=== PATIENT | male | born 1980 | race Caucasian/White ===

== ENCOUNTER 2020-07-26 01:36 | Emergency (ER) | payer BC, SELFPAY ==
--- NOTE | ~2020-07-26 | XR_ITS ---
EXAMINATION: XR LUMBAR SPINE XR SACRUM/COCCYX CLINICAL INFORMATION: Fall with pain COMPARISON: None TECHNIQUE: 3 views of the lumbar spine. 3 views of the sacrum/coccyx. FINDINGS: Lumbar spine: There is a compression deformity of the T12 vertebral body. Anterior vertebral body height loss of approximately 40%. This may be acute. Remaining vertebral body heights are maintained. The sacrum appears intact. The sacroiliac joints are symmetric. The coccyx is aligned. The bowel gas pattern is unremarkable. XR/XR sacrum coccyx min 2V IMPRESSION: Anterior wedge compression deformity of the T12 vertebral body. This could be acute. No fracture or malalignment of the sacrum/coccyx or lumbar spine.
--- NOTE | ~2020-07-26 | CT_ITS ---
EXAMINATION: CT HEAD WITHOUT CONTRAST CLINICAL INFORMATION: Fall. Loss of consciousness. COMPARISON: None. TECHNIQUE: Contiguous axial imaging was performed from the skull base to vertex without intravenous contrast. This CT examination was performed using dose optimization techniques as appropriate, variously including the following: * Automated exposure control * Adjustment of mA and/or kV according to patient size (this includes techniques or standardized protocols for targeted exams where dose is matched to indication/reason for exam; i.e. extremities or head) Use of iterative reconstruction technique DLP: 639 mGy-cm. FINDINGS: There is no evidence of acute intracranial hemorrhage or territorial infarction. No abnormal mass effect or midline shift is seen. Brown to white matter differentiation is well preserved. No extra-axial fluid collections are identified. No hydrocephalus. No significant volume loss. There is no abnormal attenuation within the brain parenchyma. The osseous structures and soft tissues are normal. Opacification of the left sphenoid. The mastoid air cells and visualized portions of the paranasal sinuses are otherwise well aerated. CT/CT head/brain wo con IMPRESSION: No acute intracranial pathology.
--- NOTE | ~2020-07-26 | XR_ITS ---
EXAMINATION: XR LUMBAR SPINE XR SACRUM/COCCYX CLINICAL INFORMATION: Fall with pain COMPARISON: None TECHNIQUE: 3 views of the lumbar spine. 3 views of the sacrum/coccyx. FINDINGS: Lumbar spine: There is a compression deformity of the T12 vertebral body. Anterior vertebral body height loss of approximately 40%. This may be acute. Remaining vertebral body heights are maintained. The sacrum appears intact. The sacroiliac joints are symmetric. The coccyx is aligned. The bowel gas pattern is unremarkable. XR/XR lumbar spine 2-3V IMPRESSION: Anterior wedge compression deformity of the T12 vertebral body. This could be acute. No fracture or malalignment of the sacrum/coccyx or lumbar spine.
[2020-07-26 02:23] VITALS: BP 130/94; PULSE 82; RESP 18; TEMP 36.7; O2SAT 95; BMI 36.1
--- NOTE | 2020-07-26 03:12 | ED_ITS ---
HPI - Fall General Chief Complaint: Fall Stated Complaint: Fall Time Seen by Provider: 07/26/20 03:12 Source: patient Mode of arrival: ambulatory History of Present Illness HPI Narrative: This is a 40-year-old male who presents after a slip and fall accident while leaving as house to go to work and states that he fell hard onto his buttocks and currently has pain across that area as well as approximately L1/L2 back pain. He denies any numbness/tingling/weakness in to his bilateral lower extremities and denies head strike or loss of consciousness, but collateral information provided by his she states that patient passed out. Related Data Previous Rx's Medication Instructions Recorded cyclobenzaprine 10 mg PO BEDTIME PRN #4 tab 07/26/20 ketorolac 10 mg PO Q6H PRN 5 Days #20 tab 07/26/20 Allergies Allergy/AdvReac Type Severity Reaction Status Date / Time No Known Allergies Allergy Unverified 02/25/20 19:23 [No Known Allergies*] Review of Systems Review of Systems: Pertinent positives and negatives as stated in HPI 10 point review systems is otherwise negative. PMFSH Past Medical History Source: nursing notes reviewed Medical History Hand fracture Heartburn symptom Hiatal hernia Social History Social History Advance Directives: No Physical Exam Vital Signs: Vital Signs: Last Vital Signs Temp 98.1 F 07/26/20 02:23 Pulse 82 07/26/20 02:23 Resp 18 07/26/20 02:23 BP 130/94 H 07/26/20 02:23 Pulse Ox 95 07/26/20 02:23 Body Mass Index 36.1 VITAL SIGNS: Reviewed. GENERAL: Well developed, well nourished, in no acute distress. HEAD: Normocephalic/atraumatic, EYES: PERRLA, EOMI OROPHARYNX: no oral lesions noted, posterior pharynx clear NECK: Supple, no adenopathy LUNGS: Normal breath sounds. SpO2<95> CARDIOVASCULAR: Regular rate and rhythm without noted murmurs ABDOMEN: Soft, non-tender, non-distended with bowel sounds. BACK: L1/L2 tenderness as well as lower paraspinal tenderness bilaterally on palpation MUSCULOSKELETAL: No tenderness, deformities, or effusions noted on gross inspection. EXTREMITIES: No cyanosis, clubbing or edema. SKIN: Inspection of the skin reveals no rashes NEUROLOGIC: Alert and oriented x 4. Strength and sensation to light touch were grossly intact x 4. Course Course Course Narrative: This is a 40-year-old male with history and clinical presentation consistent with mechanical fall and reported head strike with LOC. Patient provided combination analgesics On review of all investigations XR findings were significant for T12 wedge fracture approximately 40% height loss, CT of the head and sacral coccyx was without acute findings. On re-evaluation patient has had good pain control. Discussed with radiologist the necessity of obtaining CT of thoracic spine given the T12 wedge fracture identified and recommended that specialist identify further imaging if necessary. I discussed the case briefly with Orthopedic surgery, Dr. Trammell, who states that their office does not cover spine. Patient will be provided with Discharge Plan Discharge Clinical Impression: Fall Qualifiers: Encounter type: initial encounter Qualified Code(s): W19.XXXA - Unspecified fall, initial encounter Wedge compression fracture of thoracic vertebra Qualifiers: Encounter type: initial encounter Thoracic vertebra fracture level: T12 Fracture type: closed Qualified Code(s): S22.080A - Wedge compression fracture of T11-T12 vertebra, initial encounter for closed fracture Patient Disposition: Home, Self-Care Instructions: Vertebral Compression Fracture (ED), Fall Prevention (ED) Additional Instructions: TODAY PLEASE CONTACT: [facility] [address] [place] [address] [id number] Tylenol 1000 mg, orally, every 6 hours as needed for pain control. Do not exceed 4000 mg within 24 hours. Lidocaine patch, these are available [id number] at every [facility], apply to the area of maximal tenderness as directed on the outside packaging. Do not hesitate to return to the emergency department should you experience any acute worsening of her symptoms. Prescriptions: New ketorolac 10 mg tablet 10 mg PO Q6H PRN (Reason: pain) 5 Days Qty: 20 RF: 0 cyclobenzaprine 10 mg tablet 10 mg PO BEDTIME PRN (Reason: muscle spasm) Qty: 4 RF: 0
[2020-07-26] MEDS: Cyclobenzaprine HCl 10 MG TABLET PO (05:16)
[2020-07-26] MEDS: Ketorolac Tromethamine 15 MG/ML VIAL IM (05:17)
[2020-07-26] MEDS: Acetaminophen 325 MG TABLET 975 MG PO (05:18)
[2020-07-26] MEDS: Lidocaine 4 % Patch ADH..PATCH 1 PATCH TRANSDERMA (05:18)
== END 2020-07-26 07:22 | disposition home or self-care (01) ==
PROVIDERS: Emergency Provider Student in an Organized Health Care Education/Training Program
DX: S22.080A Wedge compression fracture of T11-T12 vertebra, initial encounter for closed fracture (principal); W01.0XXA Fall on same level from slipping, tripping and stumbling without subsequent striking against object, initial encounter; Y93.89 Activity, other specified; Y92.018 Other place in single-family (private) house as the place of occurrence of the external cause; Y99.9 Unspecified external cause status
CPT/HCPCS: 70450; 72100; 72220; 96372; 99283; 99284; J1885

== ENCOUNTER 2021-05-15 11:29 | Outpatient (REF) | payer BC, SELFPAY ==
[2021-05-15 12:46] LABS: COVID-19 Test Positive (Negative)
== END 2021-05-15 11:30 | disposition home or self-care (01) ==
LOC: HO.LAB 11:29
PROVIDERS: Visit Provider Internal Medicine
DX: Z20.822 Contact with and (suspected) exposure to COVID-19 (principal)
CPT/HCPCS: 36415; 87635; C9803

== ENCOUNTER 2021-05-29 10:48 | Outpatient (REF) | payer BC, SELFPAY ==
[2021-05-29 12:04] LABS: COVID-19 Test Positive (Negative); IDNOW Serial# 16C4AD1C
== END 2021-05-29 10:49 | disposition home or self-care (01) ==
LOC: HO.LAB 10:48
PROVIDERS: Visit Provider Internal Medicine
DX: Z20.822 Contact with and (suspected) exposure to COVID-19 (principal)
CPT/HCPCS: 36415; 87635; C9803

== ENCOUNTER 2025-03-25 17:01 | Emergency (ER) | payer BC, SELFPAY ==
[2025-03-25 17:45] VITALS: BP 169/106; PULSE 117; RESP 20; TEMP 36.7; O2SAT 95; BMI 33.3
--- NOTE | 2025-03-25 17:49 | ED.GENADULT ---
HPI - General Adult General Chief complaint: Eye Problems Stated complaint: left eye red/swollen Time Seen by Provider: 03/25/25 18:35 History of Present Illness ED Provider: Bob Weiss MD HPI narrative: 44-year-old male with a recurrence of facial rash. No history. Reports only using nicotine patches. He comes in with a about a week of worsening left sided forehead rash somewhat painful spreading to his eyelid feels like he has trouble opening in the eye but not burning pain of the eyeball itself. Little bit of clear drainage from the eye. No prior similar. No ophthalmologic history. No drugs or alcohol or known immunocompromise his partners at the bedside has personally had facial shingles in the past. Related Data Previous Rx's ?Medication ?Instructions ?Recorded cyclobenzaprine 10 mg tablet 10 mg PO BEDTIME PRN muscle spasm 07/26/20 #4 tabs ketorolac 10 mg tablet 10 mg PO Q6H PRN pain 5 days #20 07/26/20 tabs valacyclovir 1 gram tablet 1,000 mg PO TID 7 days #21 tabs 03/25/25 Allergies Allergy/AdvReac Type Severity Reaction Status Date / Time No Known Allergies (No Known Allergy Verified 03/25/25 17:49 Allergies*) [facility] Past Medical History Medical History Hand fracture Heartburn symptom Hiatal hernia Social History Social History Smoked in Last 30 Days: No Use of substances other than those prescribed or required for medical reasons: No Advance Directives: No Advance Directives Information Provided: No Do you have a plan to hurt others: No Plan Physical Exam ED Exam Exam: GENERAL: Well appearing. No apparent distress. Alert. HEAD/NECK: No visual trauma. EYES: Left eye, scleral without injection. Fluorescein staining without any clear uptake or Gerald sign. No clear dendritic lesions pupil reactive no hyphema or hypopyon visualized ENMT: Left medial superior nose, eyelid and left forehead vesicular type rash RESPIRATORY: Respiratory effort normal. CARDIOVASCULAR: Additional details (Grossly well perfused). SKIN: No jaundice. NEUROLOGICAL: Alert. Moving all extremities x4. Additional details (No gross motor deficits. Normal tone. ). PSYCHIATRIC: Alert. Appearance appropriate for situation. Vital Signs: Vital Signs - 24 hr 03/25/25 17:45 03/25/25 20:21 Temperature 98.1 F 99.7 F Pulse Rate 117 H 113 H Respiratory Rate 20 20 Blood Pressure 169/106 H 151/109 H Pulse Oximetry 95 95 Oxygen Delivery Method Room Air Room Air BMI result Body Mass Index 33.3 Course Course Course Narrative: RME: 44-year-old male presents to ED for left eye irritation and left facial rash gone back to left side of face scalp. On exam looks like shingles fascicular rash on left side of scalp and face with eye swelling. Patient to be brought back to the ED for Medications Administered Discontinued Medications Generic Name Dose Route Start Last Admin Trade Name Freq PRN Reason Stop Dose Admin Fluorescein Sodium 1 strip 03/25/25 18:41 03/25/25 18:52 Fluorescein Sodium Strip EYE-LEFT 03/25/25 18:42 1 strip ONCE ONE Administration Gabapentin 200 mg 03/25/25 18:39 03/25/25 18:44 Gabapentin 100 Mg Capsule PO 03/25/25 18:40 200 mg ONCE ONE Administration Ibuprofen 600 mg 03/25/25 18:39 03/25/25 18:44 Ibuprofen 600 Mg Tablet PO 03/25/25 18:40 600 mg ONCE ONE Administration Tetracaine HCl 1 drop 03/25/25 18:41 03/25/25 18:52 Tetracaine Hcl 0.5% Oph [place] 5 Ml Drops EYE-LEFT 03/25/25 18:42 1 drop ONCE ONE Administration Valacyclovir HCl 1,000 mg 03/25/25 18:36 03/25/25 18:45 Valacyclovir Hcl 1,000 Mg Tablet PO 03/25/25 18:37 1,000 mg ONCE ONE Administration Medical Decision Making Medical Decision Making [facility] Narrative: Medical Decision Making: Left-sided facial rash suggestive of zoster facial V1 distribution. Distribution suggestive of V1 facial zoster. No immunocompromise. No dendritic lesions or significant injection of the eye or fluorescein uptake. Oral valacyclovir and gabapentin started in the ED and continued for 7 day course with a prescription. Advised patient and partner at bedside the importance of close follow up if there are significant vision changes with Ophthalmology number provided they understood this. Preliminary Favored Differential Diagnosis: Zoster, cellulitis, viral rash, allergic rash among additional considered etiologies Testing Interpreted Independently: ?See below for details Radiology or Lab testing Results Reviewed: ?See below for details Consults: ?See below for details Independent Historians/External Chart Reviews: ?See below for details Social Determinants of Health Impacting MDM/Planning: ?See below for details Discharge Plan Discharge Clinical Impression: Herpes zoster virus infection of face and ear nerves Patient Disposition: Home, Self-Care Instructions: Shingles (ED) Additional Instructions: We have diagnosed you with presumed facial zoster which is shingles or a viral rash of the eye. We did a stain of your eye and based on the clinical examination and I stain procedure does not appear you have obvious I cornea or scleral involvement at this time. We have started the antiviral therapy please call the ophthalmology office 1st thing tomorrow morning to discuss your symptoms are presumed diagnosis and treatment and that we would like you to be seen Prescriptions: New valacyclovir 1 gram tablet 1,000 mg PO TID 7 Days Qty: 21 0RF No Action ketorolac 10 mg tablet 10 mg PO Q6H PRN (Reason: pain) 5 Days Qty: 20 0RF Rx Instructions: Patient received IM Toradol in the emergency department. cyclobenzaprine 10 mg tablet 10 mg PO BEDTIME PRN (Reason: muscle spasm) Qty: 4 0RF Interventions: ED Discharge Assessment Last Done: 03/25/25 20:21 Discharge Date/Time: 03/25/25 20:22 Print Language: Emirati
[2025-03-25] MEDS: Tetracaine HCl 0.5% Oph Sol 5 ML DROPS 1 DROP EYE-LEFT (18:52)
[2025-03-25] MEDS: Fluorescein Sodium STRIP 1 STRIP EYE-LEFT (18:52)
--- OUTSIDE RECORDS SUMMARY | 2025-03-25 19:50 | XMS_ITS | Clinical Summary ---
Author Organization [facility] ity Address [address] [place] [address] Care Team Providers Care Hotel Or Motel Receptionist Name Role Phone Seun Nicholson DO Primary Care Provider [phone] Social History Tobacco Use Types Packs/Day Years Used Date Smoking Tobacco: Never Assessed Sex and Gender Information Value Date Recorded Sex Assigned at Not on file Legal Sex Male 7:48 PM EST Gender Identity Not on file Sexual Orientation Not on file Plan of Treatment Health Maintenance Due Date Last Done Comments DTaP,Tdap,and Td Vaccines (1 - Tdap) 2001 Hepatitis B Vaccines (1 of 3 - 19+ 3-dose series) 2001 HPV Vaccines (1 - 3-dose SCD M series) 2009 Depression Screening 06/10/2024 COVID-19 Vaccine ( - 2023-2 5 season) 2025 Influenza Vaccine (#1) 2025 RSV Immunization Adult Patie nts (1 - 1-dose 75+ series) 2057 HIB Vaccines Aged Out No longer eligi ble based on patient's age to complete this topic Hepatitis A Vaccines Aged Out No long er eligible based on patient's age to complete this topic IPV Vaccines Aged Out No longer eligi ble based on patient's age to complete this topic MMR Vaccines Aged Out No longer eligi ble based on patient's age to complete this topic Meningococcal ACWY Vaccine Aged Out N o longer eligible based on patient's age to complete this topic Meningococcal B Vaccine Aged Out No l onger eligible based on patient's age to complete this topic Pneumococcal Vaccine: Pediat rics (0 to 5 Years) and At-Risk Patients (6 to 49 Years) Aged Out No longer eligible b ased on patient's age to complete this topic RSV Immunization Patients Un fernandez 20 months Aged Out No longer eligible b ased on patient's age to complete this topic Varicella Vaccines Aged Out No longer eligible based on patient's age to complete this topic Care Teams Hotel Or Motel Receptionist Relationship Specialty Start Date End Date Seun Nicholson DO [address] [place] [address] [address] [place] [address] PCP - General Family Medicine 08/13/15
--- OUTSIDE RECORDS SUMMARY | 2025-03-25 19:50 | XMS_ITS | Clinical Summary ---
Author Organization [facility] Address [address] [place] [address] Care Team Providers Care Senior Counsel Name Role Phone Seun Nicholson DO Primary Care Provider [phone] Medications Medication Sig Dispensed Refills Start Date End Date Status lidocaine (XYLOCAINE) 2 % solution 0 06/14/2015 Active oxyCODONE (ROXICODONE) 5 MG immediate release tablet 0 05/10/2015 Active Social History Tobacco Use Types Packs/Day Years Used Date Smoking Tobacco: Former Sex and Gender Information Value Date Recorded Sex Assigned at Not on file Gender Identity Not on file Sexual Orientation Not on file Job Start Date Occupation Industry Not on file Not on file Not on file Last Filed Vital Signs Vital Sign Reading Time Taken Comments Blood Pressure 134/79 08/13/2015 7:37 PM EST Pulse 80 08/13/2015 7:37 PM EST Temperature 36.8 C (98.2 F) 08/13/2015 7:37 PM EST Respiratory Rate 20 08/13/2015 7:37 PM EST Oxygen Saturation 98% 08/13/2015 7:37 PM EST Inhaled Oxygen Concentration - - Weight 83.5 kg (184 lb) 08/13/2015 7:37 PM EST Height 172.7 cm (5' 8 ) 08/13/2015 7:37 PM EST Body Mass Index 27.98 08/13/2015 7:37 PM EST Plan of Treatment Health Maintenance Due Date Last Done Comments Hepatitis B Vaccines (1 of 3 - 3-dose series) 1982 Hepatitis C Screening 1982 COVID-19 Vaccine (#1) 1982 Depression Screening 1994 Preventative Health Evaluation 2000 DTap / Tdap / Td (1 - Tdap) 2001 Influenza Vaccine (#1) 2025 Pneumococcal Vaccine Aged Out No long er eligible based on patient's age to complete this topic RSV Ped < 20 months Aged Out No longe r eligible based on patient's age to complete this topic Care Teams Senior Counsel Relationship Specialty Start Date End Date Seun Nicholson DO [address] [place] [id number] PCP - General Family Medicine 08/13/15
[2025-03-25 20:21] VITALS: BP 151/109; PULSE 113; RESP 20; TEMP 37.6; O2SAT 95
== END 2025-03-25 20:22 | disposition home or self-care (01) ==
PROVIDERS: Emergency Provider Emergency Medicine
DX: B00.9 Herpesviral infection, unspecified (principal); B02.8 Zoster with other complications
CPT/HCPCS: 99283; 99284